=== PATIENT | female | born 1965 | race Caucasian/White ===

== ENCOUNTER 2020-08-28 07:50 | Outpatient (CLI) | payer OTHER, SELFPAY ==
--- NOTE | ~2020-08-28 | US_ITS ---
EXAMINATION: US abdomen complete EXAM DATE: 08/28/2020 09:22 INDICATION: R10.30 - Lower abdominal pain, unspecified. TECHNIQUE: Multiple grayscale and Doppler images of the complete abdomen were obtained (by a technolo gist who performed the scan) and subsequently reviewed. There is no prior study for comparison. FINDINGS: The abdominal aorta is normal in caliber. Visualized portion IVC is patent. The pancreatic head a nd body are normal in appearance. The pancreatic tail is not visualized. The liver has normal echogenicity and contour. There are no focal liver lesions identified. There is no evidence of intrahepatic biliary duct dilation. Portal venous flow was seen in the hepatopedal , normal direction and has normal Doppler waveform. Common bile duct measures 6 mm, which is normal for postcholecystectomy status. The gallbladder yousuf a is unremarkable. Right kidney: There is normal contour and echogenicity. It measures 10.4 x 3.8 x 4.9 centimeters. There are no focal renal lesions identified. There is no hydronephrosis. Left kidney: There is normal contour and echogenicity. It measures 11.2 x 4.7 x 5.4 centimeters. T here are no focal renal lesions identified. There is no hydronephrosis. The spleen measures 9 centimeters and is morphologically normal. IMPRESSION: Unremarkable complete abdominal ultrasound exam. Reviewed, dictated and finalized at location A.
--- NOTE | ~2020-08-28 | US_ITS ---
EXAMINATION: US pelvic complete with transvaginal EXAM DATE: 08/28/2020 09:22 INDICATION: R10.30 - Lower abdominal pain, unspecified. TECHNIQUE: Pelvic transabdominal and transvaginal sonogram was performed. There are multiple graysca le and Doppler images available for interpretation. There is no prior study for comparison. FINDINGS: Uterus measures 5.6 x 3.6 x 4.7 cm, is retroverted with multiple fibroids, 2 of the larger measuring 2.5 cm and 2.3 cm. Endometrial stripe measures 3 mm, within normal limits. There is no f ree pelvic fluid. Right adnexa: The ovary measures 1.2 x 2.1 x 1.1 cm and is morphologically normal. Ovarian vascular f low confirmed. Left adnexa: The ovary measures 1.9 x 0.9 x 1.7 cm and is morphologically normal. Ovarian vascular fl ow confirmed. IMPRESSION: 1. Fibroid uterus. Reviewed, dictated and finalized at location A. IMPRESSION: 1. Fibroid uterus.
--- NOTE | ~2020-08-28 | MM_ITS ---
EXAMINATION: MM screening josette BI w katheryn HISTORY: Screening TECHNIQUE: Craniocaudal and mediolateral oblique 3-D tomosynthesis images were obtained and synthetic 2-D images were generated. CAD analysis was submitted and interpreted. COMPARISON: No prior mammogram is available for comparison at this institution. BREAST PARENCHYMAL COMPOSITION: The breasts are heterogenously dense, which may obscure small masses. FINDINGS: There are asymmetries in the medial aspect of the right breast on CC view. There are no jovita picious masses, calcifications or architectural distortion in the left breast to suggest malignancy. IMPRESSION: 1. Focal asymmetries medial aspect of the right breast 2. Additional mammographic views and possible breast ultrasound are recommended. BI-RADS Category 0: Incomplete: Needs additional imaging evaluation. Reviewed, dictated and finalized at location A. IMPRESSION: 1. Focal asymmetries medial aspect of the right breast 2. Additional mammographic views and possible breast ultrasound are recommended . BI-RADS Category 0: Incomplete: Needs additional imaging evaluation.
[2020-08-28 08:07] LABS: Basophils Absolute Auto 0.06 K/mm3 (0.00-0.10); Basophils Percent Auto 0.9 % (0.0-1.0); Eosinophils Absolute Auto 0.19 K/mm3 (0.02-0.50); Eosinophils Percent Auto 2.8 % (1.0-6.0); Hematocrit 42.9 % (35.0-49.0); Hemoglobin 14.7 g/dL (12.0-15.0); Immature Granulocyte Absolute 0.02 K/mm3 (0.00-0.00); Immature Granulocyte Percent A 0.3 % (0.0-0.0); Lymphocytes Absolute Auto 1.58 K/mm3 (1.10-4.50); Lymphocytes Percent Auto 23.2 % (18.0-42.0); Mean Corpuscular HGB Conc 34.3 g/dL (32.0-36.0); Mean Corpuscular Hemoglobin 30.9 pg (27.0-31.0); Mean Corpuscular Volume 90.3 fL (78.0-102.0); Mean Platelet Volume 8.5 fl (9.2-11.8); Monocytes Absolute Auto 0.47 K/mm3 (0.10-0.90); Monocytes Percent Auto 6.9 % (2.0-11.0); Neutrophils Absolute Auto 4.5 K/mm3 (1.7-7.2); Neutrophils Percent Auto 65.9 % (50.0-70.0); Platelet Count Result 283 K/mm3 (150-420); Red Blood Count 4.75 M/mm3 (4.20-5.40); Red Cell Distribution Width 11.9 % (11.6-14.4); White Blood Count 6.8 K/mm3 (4.8-10.8)
[2020-08-28 08:09] LABS: Add Urine Microscopic? YES; Appearance Urine Clear (Clear); Bilirubin Urine Negative (Negative); Blood Urine 2+ (Negative); Color Urine Yellow (Yellow); Glucose Urine UA Negative (Negative); Ketones Urine Negative (Negative); Leukocyte Esterase Ur 3+ LEU/UL (Negative); Nitrate Urine Negative (Negative); Protein Urine Negative (Negative); Specific Grav Ur 1.025 (1.010-1.020); Urobilinogen Urine 0.2 mg/dL (0.2-1.0)
[2020-08-28 08:16] LABS: Squamous Epithelial Cell Urine Few /hpf (Few); WBC Urine 31-50 /hpf (0-3)
[2020-08-28 08:17] LABS: Bacteria Urine 1+ /hpf
[2020-08-28 09:55] LABS: Alanine Aminotransferase 58 U/L (14-59); Alkaline Phosphatase 91 U/L (46-116); Amylase 110 U/L (25-115); Anion Gap 7 mmol/L (8-16); Aspartate Amino Transferase 21 U/L (15-37); Bilirubin,Total 0.4 mg/dL (0.00-1.00); Blood Urea Nitrogen 16 mg/dL (7-18); Calcium 9.3 mg/dL (8.5-10.1); Carbon Dioxide 29 mmol/L (21-32); Chloride 102 mmol/L (98-108); Cholesterol 243 mg/dL (0-200); Estimated Glomerular Filt Rate > 60; Glucose 84 mg/dL (70-99); HDL Direct 82 mg/dL (40-60); LDL Cholesterol Calculated 145 mg/dL (<130); Lipase 228 U/L (73-393); Osmolality Calculated 286 mOsm/kg (285-295); Potassium 4.4 mmol/L (3.5-5.1); Sodium 138 mmol/L (136-145); Total Protein 7.2 g/dL (6.4-8.2); Triglycerides 80 mg/dL (0-150)
== END 2020-08-28 07:51 | disposition home or self-care (01) ==
LOC: CHSIMG 07:56
PROVIDERS: PCP Family Medicine; Visit Provider Nurse Practitioner Family
DX: R10.30 Lower abdominal pain, unspecified (principal); Z12.31 Encounter for screening mammogram for malignant neoplasm of breast
CPT/HCPCS: 36415; 76700; 76856; 77063; 77067; 80053; 80061; 81001; 82150; 83690; 85025; 87086

== ENCOUNTER 2020-09-12 07:48 | Outpatient (CLI) | payer OTHER, SELFPAY ==
--- NOTE | ~2020-09-12 | MMUS_ITS ---
EXAMINATION: MM diagnostic josette RT w katheryn, US breast RT complete HISTORY: Follow-up right breast asymmetry TECHNIQUE: Additional 3-D tomosynthesis images of the right breast were performed and synthetic 2-D i mages were generated. CAD analysis was submitted and interpreted. High resolution complete right bre st ultrasound was performed. COMPARISON: 08/28/2020 BREAST PARENCHYMAL COMPOSITION: Breast composed of scattered areas of fibroglandular density. FINDINGS: MAMMOGRAPHIC FINDINGS: There is a radiolucent 7 mm mass in the mid inner aspect of the right breast posteriorly. There are n o suspicious calcifications or architectural distortion. ULTRASOUND: Right breast ultrasound: At 2:00, 3 cm from the nipple, there is a 5 mm cyst. No suspicious masses to suggest malignancy. IMPRESSION: 1. No evidence for malignancy in the right breast. Benign findings. 2. Routine yearly screening mammogram and regular clinical breast examination are recommended. BI-RADS Category 2: Benign finding(s). Reviewed, dictated and finalized at location A. IMPRESSION: 1. No evidence for malignancy in the right breast. Benign findings. 2. Routine yearly screening mammogram and regular clinical breast examination a re recommended. BI-RADS Category 2: Benign finding(s).
== END 2020-09-12 07:49 | disposition home or self-care (01) ==
LOC: CHSIMG 07:49
PROVIDERS: PCP Nurse Practitioner Family; Visit Provider Nurse Practitioner Family
DX: R92.8 Other abnormal and inconclusive findings on diagnostic imaging of breast (principal)
CPT/HCPCS: 76641; 77061; 77065; G0279

== ENCOUNTER 2021-01-06 10:46 | Outpatient (CLI) | payer OTHER, SELFPAY | END 2021-01-06 10:47 | disposition home or self-care (01) | PROVIDERS: PCP Nurse Practitioner Family; Visit Provider Nurse Practitioner Family | DX: N39.0 Urinary tract infection, site not specified (principal); Z02.1 Encounter for pre-employment examination | CPT/HCPCS: 36415; 86735; 87086; 87088 ==

== ENCOUNTER 2021-06-10 12:11 | Outpatient (CLI) | payer OTHER, SELFPAY ==
[2021-06-10 12:32] LABS: Basophils Absolute Auto 0.04 K/mm3 (0.00-0.10); Basophils Percent Auto 0.6 % (0.0-1.0); Eosinophils Absolute Auto 0.15 K/mm3 (0.02-0.50); Eosinophils Percent Auto 2.4 % (1.0-6.0); Hematocrit 43.5 % (35.0-49.0); Hemoglobin 14.7 g/dL (12.0-15.0); Immature Granulocyte Absolute 0.01 K/mm3 (0.00-0.00); Immature Granulocyte Percent A 0.2 % (0.0-0.0); Lymphocytes Absolute Auto 1.85 K/mm3 (1.10-4.50); Lymphocytes Percent Auto 29.9 % (18.0-42.0); Mean Corpuscular HGB Conc 33.8 g/dL (32.0-36.0); Mean Corpuscular Volume 91.8 fL (78.0-102.0); Mean Platelet Volume 8.6 fl (9.2-11.8); Monocytes Absolute Auto 0.38 K/mm3 (0.10-0.90); Monocytes Percent Auto 6.1 % (2.0-11.0); Neutrophils Absolute Auto 3.8 K/mm3 (1.7-7.2); Neutrophils Percent Auto 60.8 % (50.0-70.0); Platelet Count Result 308 K/mm3 (150-420); Red Blood Count 4.74 M/mm3 (4.20-5.40); Red Cell Distribution Width 11.9 % (11.6-14.4); White Blood Count 6.2 K/mm3 (4.8-10.8)
[2021-06-10 13:18] LABS: Alanine Aminotransferase 33 U/L (14-59); Albumin Level 4.1 g/dL (3.4-5.0); Alkaline Phosphatase 84 U/L (46-116); Anion Gap 8 mmol/L (8-16); Aspartate Amino Transferase 18 U/L (15-37); Bilirubin,Total 0.4 mg/dL (0.00-1.00); Blood Urea Nitrogen 13 mg/dL (7-18); Calcium 9.5 mg/dL (8.5-10.1); Carbon Dioxide 29 mmol/L (21-32); Chloride 102 mmol/L (98-108); Estimated Glomerular Filt Rate > 60; Glucose 80 mg/dL (70-99); Magnesium 2.6 mg/dL (1.8-2.4); Osmolality Calculated 287 mOsm/kg (285-295); Potassium 4.6 mmol/L (3.5-5.1); Sodium 139 mmol/L (136-145); Total Protein 7.2 g/dL (6.4-8.2)
== END 2021-06-10 12:12 | disposition home or self-care (01) ==
LOC: CHSLAB 12:14
PROVIDERS: PCP Nurse Practitioner Family; Visit Provider Nurse Practitioner Family
DX: R42 Dizziness and giddiness (principal)
CPT/HCPCS: 36415; 80053; 83735; 85025

== ENCOUNTER 2022-07-06 14:45 | Outpatient (RCR) | payer OTHER, MEDICAID, SELFPAY ==
--- NOTE | 2022-06-08 14:24 | PTOPEVAL1 ---
Assessment and note entered by Rupali Gonzalez, PT, DPT Evaluation Information Assessment Status Evaluation Diagnosis low back pain Onset 3 years Subjective Information Pt states she has R sided low back pain, maybe even hip/leg pain. She states she has been getting treatment from the chiropractor without much relief. She states when she sits for longer than 20 mins her leg with start to freeze up . Reported Pain Level Pain Score 0: Self Report Assessment PT Clinical Summary Sheela presents to therapy today for her initial evaluation with a diagnosis of dorsalgia. Today she reports R sided anterior groin pain that is at its worst with initial movements. She demonstrates lumbar and LE ROM that is WNL and pain free, she demonstrates good LE strength through manual muscle testing that is not limited by pain. Skilled PT services are indicated to improve hip stability and functional strength, to manage pain, and to promote unlimited functional mobility. Plan of Care Interventions Electrical Stimulation,Hot Pack/Cold Pack,Manual Therapy,Neuro Re-education,Patient/Caregiver Educati,Therapeutic Activities,Therapeutic Exercise PT Services Indicated Yes Treatment Frequency and 1x/wk for 4 wks Duration These treatments will address the objective and functional deficits as defined above. The patient will be advanced safely and appropriately in order for the patient to progress towards his/her prior level of function. Additional exercises will be introduced and as well as a comprehensive home exercise program upon discharge, if needed, ?to ensure carryover of functional gains achieved in the clinic. This treatment plan has been reviewed and agreement upon by the patient.
--- NOTE | 2022-07-06 15:33 | PTOPDC ---
Assessment and note entered by Rupali Gonzalez, PT, DPT Evaluation Information Assessment Status Discharge Diagnosis low back pain Onset 3 years Subjective Information Pt states her pain is half as bad as it was when initially starting therapy. She states it also does not stiffen up like it used to. Pt reports 35 % improvement in overall symptoms. She reports great compliance with her HEP. Pt states she walked 2 miles on Wednesday and 1 mile on Wednesday without an increase in pain after. She states her pain is still worse for the first 1 hour of being awake. Reported Pain Level Pain Score 0: Self Report Assessment PT Clinical Summary Sheela presents to therapy today for her progress report following 4 visits of skilled therapy to treat her low back pain. Today pt demonstrates improved LE strength and ROM, to reports improved functional mobility with only pain in the morning. Pt reports excellent compliance with her HEP and has met or progressed towards all of her therapy goals. She will be discharged at this time with instructions to continue her HEP upon discharge and to follow up with her referring provider if needed. Plan of Care Interventions Electrical Stimulation,Hot Pack/Cold Pack,Manual Therapy,Neuro Re-education,Patient/Caregiver Educati,Therapeutic Activities,Therapeutic Exercise PT Services Indicated No Treatment Frequency and to be discharged Duration
== END 2022-07-07 09:52 | disposition home or self-care (01) ==
LOC: ANHGOSHPT 14:45
PROVIDERS: PCP Nurse Practitioner Family; Visit Provider Nurse Practitioner Family
DX: M54.9 Dorsalgia, unspecified (principal); M47.816 Spondylosis without myelopathy or radiculopathy, lumbar region
CPT/HCPCS: 97110; 97112; 97140; 97161; 97530

== ENCOUNTER 2022-11-20 10:55 | Outpatient (CLI) | payer OTHER, SELFPAY ==
--- NOTE | ~2022-11-20 | DEXA_ITS ---
Bone Density Report Name: MELANIE SHER Age: 57 Sex: Female Ethnicity: White Date of : 1965 Indication: postmenopausal; screening for osteoporosis; height loss; Referring Provider: Melida Keene Study: Bone densitometry was performed. Exam Date: November 20, 2022 Accession number: [id number] Bone Density: Region BMD T-score Z-score Classification AP Spine(L1-L4) 0.848 -1.8 -0.5 Osteopenia Femoral Neck (Left) 0.580 -2.4 -1.2 Osteopenia Total Hip (Left) 0.870 -0.6 0.3 Normal Femoral Neck (Right) 0.614 -2.1 -0.9 Osteopenia Total Hip (Right) 0.849 -0.8 0.1 Normal Femoral Neck Mean 0.597 -2.3 -1.1 Osteopenia Total Hip Mean 0.859 -0.7 0.2 Normal World Health Organization criteria for BMD impression classify patients as: Normal (T-score at or above -1.0), Osteopenia (T-score between -1.0 and -2.5), or Osteoporosis (T-score at or below -2.5). 10-year Fracture Risk(1): Major Osteoporotic Fracture 9.8% Hip Fracture 1.5% Reported Risk Factors: [place] (), Neck BMD=0.580, BMI=30.0 (1) FRAX(R) Version 3.08. Fracture probability calculated for an untreated patient. Fracture probability may be lower if the patient has received treatment. Clinical Information Provided by Patient: Has used the following medications: Vitamin D, Calcium Patient maximum height was 67 Menopause Age: 54 Drinks caffeinated beverages Onset of menses at age 13 Number of children 0 Impression: The patient has low bone mass, based on the Left Femoral Neck T-score. Discussion: BONE DENSITY IS LOW AT ONE OR MORE SKELETAL SITES. This patient's lowest T-score is low at one or more skeletal sites. It meets the World Health Organization's (WHO) criteria for ?low bone mass? (T-score between -1.0 and -2.5). The patient's 10-year risk of fracture as calculated by FRAX is less than the threshold where pharmacological therapy is recommended by the National Osteoporosis Foundation (NOF). However, all treatment decisions require clinical judgment and consideration of individual patient factors, including patient preferences, comorbidities, previous drug use, risk factors not captured in the FRAX model (e.g., frailty, falls, vitamin D deficiency, increased bone turnover, interval significant decline in bone density) and possible under or overestimation of fracture risk by FRAX. The patient should follow a healthful lifestyle (good nutrition with adequate calcium and vitamin D, and appropriate weight-bearing exercise). Follow-Up: Consider repeating this study in 2 to 3 years to reassess this patient's status, or sooner if there is some new clinical indication. Reported by: Dr. Kavin Rodriguez on 11/20/2022 11:15:00 AM. Reviewed, dictated a
== END 2022-11-20 10:56 | disposition home or self-care (01) ==
LOC: CHSIMG 10:56
PROVIDERS: PCP Nurse Practitioner Family; Visit Provider Nurse Practitioner Family
DX: Z78.0 Asymptomatic menopausal state (principal); M85.89 Other specified disorders of bone density and structure, multiple sites
CPT/HCPCS: 77080

== ENCOUNTER 2023-01-18 12:06 | Outpatient (CLI) | payer OTHER, SELFPAY ==
--- NOTE | ~2023-01-18 | MM_ITS ---
EXAMINATION: MM screening josette BI w kathreyn HISTORY: Screening mammogram TECHNIQUE: Craniocaudal and mediolateral oblique 3-D tomosynthesis images were obtained and synthetic 2-D images were generated. CAD analysis was submitted and interpreted. COMPARISON: 09/12/2020 diagnostic right mammogram and right complete breast ultrasound examination 08/28/2020 bilateral screening mammogram BREAST PARENCHYMAL COMPOSITION: There are scattered areas of fibroglandular density. FINDINGS: Stable approximately 3.7 x 5.8 mm nodular density circumscribed opacity is noted in the pos terior inner right breast on craniocaudal view, not significantly changed since 08/28/2020. No suspici ous mass, architectural distortion, microcalcifications, skin thickening or retraction of either bre st is detected.. IMPRESSION: 1. Benign finding; no mammographic evidence of malignancy 2. Recommend routine screening mammography in one year. BI-RADS Category 2: Benign finding(s). Reviewed, dictated and finalized at location A.
== END 2023-01-18 12:07 | disposition home or self-care (01) ==
LOC: CHSIMG 12:07
PROVIDERS: PCP Nurse Practitioner Family; Visit Provider Nurse Practitioner Family
DX: Z12.31 Encounter for screening mammogram for malignant neoplasm of breast (principal)
CPT/HCPCS: 77063; 77067

== ENCOUNTER 2023-05-08 15:04 | Emergency (ER) | payer OTHER, SELFPAY ==
--- NOTE | 2023-05-08 15:12 | ED.URI ---
HPI - URI/Sore Throat General Chief Complaint: Upper Respiratory Infection Stated Complaint: SORE THROAT/COUGH/HEADACHE/NAUSEA/BODY ACHES Time Seen by Provider: 05/08/23 15:59 Source: patient and RN notes reviewed Mode of arrival: ambulatory Limitations: no limitations History of Present Illness HPI Narrative: 57-year-old female presents concern for nasal congestion, headache, sore throat, body aches that started on Wednesday. She denies shortness of breath. She reports chest congestion. MD elicited complaint: cough and sore throat Related Data Allergies Allergy/AdvReac Type Severity Reaction Status Date / Time Penicillins Allergy Hives Verified 05/18/22 15:39 Review of Systems Review of Systems: CONSTITUTIONAL: Reports malaise, chills, sweats, fever. EYES: Denies visual changes, redness, or discharge. ENT: Reports rhinorrhea, congestion. Denies sinus pain, otalgia and sore throat. CARDIOVASCULAR: Denies chest pain, palpitations, or edema. RESPIRATORY: Reports cough and chest congestion. Denies dyspnea. GASTROINTESTINAL: Denies abdominal pain, nausea, vomiting, diarrhea SKIN: Denies rash or itching. MUSCULOSKELETAL: Reports myalgia. NEUROLOGIC: Reports headache. All systems reviewed & are unremarkable except as noted in HPI and below PMFSH Surgical History Surgical History History of cholecystectomy Social History Social History Smoking status: Never smoker Alcohol intake: current Alcohol use details: glass of wine once in a while Substance use: never Lack of Transportation: No Lack of Food: Never True Current Housing: I Have Housing Concerned About Future Housing: No Difficulty Paying Gas/Electric Bills: No Difficulty Paying for Meds: No Currently Unemployed: No Education: Associate Degree Difficulty w/ Childcare or Family Care: No Living arrangements: with family Occupation/Education: occupation Additional occupation/education comments: [employer] in [place] Gender identity (if verbalized by the patient): Female Comments At time of signature, agree with nursing past medical, surgical, social and family history. There is no relevant family history pertinent to the presenting complaint Exam Narrative: GENERAL: Well-appearing, well-nourished, and in no acute distress. HEAD: Normocephalic EYES: PERRLA, conjunctivae clear ENT: Nares clear, turbinates edematous and erythematous, clear discharge. Mucous membranes moist. TM pearly urban with sharp light reflex bilaterally; no tragal tenderness. Oropharynx not erythematous without lesions. Tonsils not enlarged and without exudate, no drooling, no hoarseness, no trismus, uvula midline. NECK: Supple. No lymphadenopathy CHEST: Clear to auscultation, breath sounds equal. No wheezing, rhonchi, rales, or stridor. No respiratory distress, speaks in full sentences. HEART: Regular rate and rhythm. No murmur heard. SKIN: Warm, dry, no rash. NEURO: Alert and oriented x3. PSYCH: Normal mood and affect Course Course Emergency Course: Patient is aware of diagnosis, understands and agrees to treatment plan. Anticipatory guidance given. Patient agrees to follow-up as directed and is aware of reasons to seek care at the emergency department. Portions of this record may have been created with voice recognition software Level of Care: Express Care Visit Vital Signs Vital signs: Vital Signs Temperature 97.8 F 05/08/23 15:50 Pulse Rate 119 H 05/08/23 15:50 Respiratory Rate 16 05/08/23 15:50 Blood Pressure 133/96 H 05/08/23 15:50 Pulse Oximetry 97 05/08/23 15:50 Temperature 97.8 F 05/08/23 15:50 Pulse Rate 119 H 05/08/23 15:50 Respiratory Rate 16 05/08/23 15:50 Blood Pressure 133/96 H 05/08/23 15:50 Pulse Oximetry 97 05/08/23 15:50 Reviewed. MDM - URI/Sore Throat MDM Narrative Medic
[2023-05-08 15:50] VITALS: BP 133/96; PULSE 119; RESP 16; TEMP 36.6; O2SAT 97
== END 2023-05-08 16:12 | disposition home or self-care (01) ==
PROVIDERS: Emergency Provider Nurse Practitioner; PCP Nurse Practitioner Family
DX: J10.1 Influenza due to other identified influenza virus with other respiratory manifestations (principal)
CPT/HCPCS: 87804; 99213; G0463

== ENCOUNTER 2023-05-31 10:20 | Outpatient (CLI) | payer OTHER, SELFPAY ==
--- NOTE | ~2023-05-31 | XR_ITS ---
EXAM: XR ribs LT 2V DATE: 05/31/2023 10:40 HISTORY: LOWER LEFT RIB PAIN X 2 MONTHS/NO TRAUMA . COMPARISON: None available. FINDINGS: Normal mineralization. No fracture or dislocation. No lytic or blastic lesion. Visualized lung parenchyma is clear. No erosion or periosteal change. Soft tissues within normal limits. Cholecy stectomy clips. IMPRESSION: No acute osseous finding in the left ribs. Reviewed, dictated and finalized at location K. P MIXER HELPER
== END 2023-05-31 10:21 | disposition home or self-care (01) ==
LOC: CHSIMG 10:22
PROVIDERS: PCP Nurse Practitioner Family; Visit Provider Nurse Practitioner Family
DX: R07.81 Pleurodynia (principal)
CPT/HCPCS: 71100

== ENCOUNTER 2023-11-03 07:46 | Outpatient (CLI) | payer OTHER, MEDICAID, SELFPAY ==
--- NOTE | ~2023-11-03 | XR_ITS ---
EXAMINATION: XR barium swallow DATE: 11/03/2023 08:41 INDICATION: Dysphagia with sensation of food getting stuck in the distal esophagus. TECHNIQUE: The patient drank thick barium, gas-producing crystals, and thin barium. Fluoroscopic spot radiographs of the hypopharynx and esophagus were obtained. Fluoroscopy exposure time was 1.7 minut es. A total of 1160 fluoroscopic images were recorded. Total DAP was 10.4 Gycm^2 COMPARISON: None. FINDINGS: The pharynx is symmetric and without evidence of mass lesion or mucosal irregularity. The e sophagus is normal without mass or stricture. Esophageal motility is normal. No hiatal hernia with no rmal esophageal a ring at the cephalad margin of the esophageal bulb proximally 2 cm above the diaphr agm. There was no gastroesophageal reflux with provocative maneuvers. IMPRESSION: 1. Normal esophagram. Reviewed, dictated and finalized at location A. IMPRESSION: 1. Normal esophagram.
== END 2023-11-03 07:47 | disposition home or self-care (01) ==
PROVIDERS: PCP Nurse Practitioner Family; Visit Provider Nurse Practitioner Family
DX: R13.10 Dysphagia, unspecified (principal)
CPT/HCPCS: 74220

== ENCOUNTER 2024-07-26 12:47 | Outpatient (CLI) | payer OTHER, SELFPAY ==
--- NOTE | ~2024-07-26 | MM_ITS ---
EXAMINATION: MM screening josette BI w katheryn HISTORY: Screening TECHNIQUE: Craniocaudal and mediolateral oblique 3-D tomosynthesis images were obtained and synthetic 2-D images were generated. CAD analysis was submitted and interpreted. COMPARISON: Comparison to multiple prior studies sequentially, with oldest reviewed study dated 08/28. BREAST PARENCHYMAL COMPOSITION: Not dense: There are scattered areas of fibroglandular density. FINDINGS: There is no evidence of suspicious mass, calcification, or architectural distortion to sugg est malignancy in either breast. There has been no suspicious interval change. IMPRESSION: 1. No mammographic evidence of malignancy. 2. Recommend routine screening mammography in one year. BI-RADS Category 1: Negative Reviewed, dictated and finalized at location B.
--- OUTSIDE RECORDS SUMMARY | 2024-07-26 13:44 | XMS_ITS | Continuity of Care Document ---
Author Organization [facility] Address [address] [place] [address] Phone Care Team Providers Care Pet Technologist Name Role Phone Unavailable Unavailable Unavailable Procedures Procedure Date Resin Composite, 2 Surfaces, Posterior F Comprehensive Oral Evaluation-New/Est Pt Full Mouth Series Of Radiographic Images Limit Oral Evaluation- problem focused O Dental Panoramic Radiographic Image Maxillary Partial Denturel--Cast Metal F ramework With Resin Denture Bases Denture-Wax Try-In Hrkcrjq-Abdqilm-Fflufoxkt Try-In 2016 Office Visit (No Chrg) Uefeung-Fwmnmta-Fafgz Impressions Blauwtd-Iddzsnn-Nsvovcc Impressions Dental prophylaxis adult Resin composite, 1 [...] Diagnoses Date Provider Providers Copied on Encounter [facility] , [address], [place], [place], [address], tel:[phone] [facility] Dental caries, unspecified 0 No Information Referring Provider: Rasheed Ness [address], [place], [address] . tel:[phone] [facility] , [address], [place], [place], [address], tel:[phone] [facility] Dental caries, unspecified 9 No Information Referring Provider: Rasheed Ness [address], [place], [address] . tel:[phone] [facility] , [address], [place], [place], [address], tel:[phone] [facility] Dental caries, unspecified 9 No Information Referring Provider: Rasheed Ness [address], [place], [address] . tel:[phone] [facility] , [address], [place], [place], [address], tel:[phone] [facility] Encounter for dental exam and cleaning w abnormal findings 7 No Information Referring Provider: Josephine Terrazas [address], [place], [address] . tel:[phone] [facility] , [facility], [place], [place], [address], tel:[phone] [facility] Encounter for dental exam and cleaning w abnormal findings 7 No Information Referring Provider: Josephine Terrazas [address], [place], [address] . tel:[phone] [facility] , [address], [place], [place], [address], [place] tel:[phone] [facility] Encounter for dental exam and cleaning w abnormal findings 7 No Information Referring Provider: Josephine Terrazas [address], [place], [address] . tel:[phone] [facility] , [address], [place], [place], [address], [place] tel:[phone] [facility] Encounter for dental exam and cleaning w abnormal findings 7 No Information Referring Provider: Josephine Terrazas [address], [place], [address] . tel:[phone] [facility] , [address], [place], [place], [address], [place] tel:[phone] [facility] Encounter for dental exam and cleaning w abnormal findings 7 No Information Referring Provider: Josephine Terrazas [address], [place], [address] . tel:[phone] [facility] , [address], [place], [place], [address], [place] tel:[phone] [facility] Encounter for dental exam and cleaning w abnormal findings 7 No Information Referring Provider: Josephine Terrazas [address], [place], [address] . tel:[phone] [facility] , [address], [place], [place], [address], [place] tel:[phone] [facility] Encounter for dental exam and cleaning w abnormal findings 7 No Information Referring Provider: Josephine Terrazas [address], [place], [address] . tel:[phone] [facility] , [address], [place], [place], [address], [place] tel:[phone] [facility] caries, unspecified 7 No Information Referring Provider: Josephine Terrazas [address], [place], [address] . tel:[phone] [facility] , [address], [place], [place], [address], [place] tel:[phone] [facility] No Information 7 No Information Referring Provider: Josephine Terrazas, [address], [place], [address] . tel:[phone] [facility] , [address], [place], [place], [address], [place] tel:[phone] [facility] No Information 7 No Information Referring Provider: Josephine Terrazas, [address], [place], [address] . tel:[phone] [facility] , [address], [place], [place], [address], [place] tel:[phone] [facility] Dental caries, unspecified No Information Referring Provider: Josephine Terrazas, [address], [place], [address] . tel:[phone] [facility] , [address], [place], [place], [address], [place] tel:[phone] [facility] Dental caries, unspecified 7 No Information Referring Provider: Rasheed Ness, [address], [place], [address] . tel:[phone] [facility] , [address], [place], [place], [address], [place] tel:[phone] [facility] Encounter for dental exam and cleaning w abnormal findings 6 Nini Burton. [address], [place], [place], [address]. tel:[phone] Referring Provider: Josephine Terrazas, [address], [place], [address] . tel:[phone] [facility] , [address], [place], [place], [address], [place] tel:[phone] [facility] Dental caries on smooth surface penetrating into dentinEncounter for dental exam and cleaning w abnormal findings Mar-0 6 Nini Burton. [address], [place], [place], [address]. tel:[phone] Referring Provider: Josephine Terrazas, [address], [place], [address] . tel:[phone] [facility] , [address], [place], [place], [address], tel:[phone] [facility] Encounter for dental exam and cleaning w abnormal findings 6 Nini Burton. [address], [place], [place], [address]. tel:[phone] Referring Provider: Josephine Terrazas, [address], [place], [address] . tel:[phone] [facility] , [address], [place], [place], [address], tel:[phone] [facility] No Information 6 Nini Burton. [address], [place], [place], [address]. tel:[phone] Referring Provider: Josephine Terrazas, [address], [place], [address] . tel:[phone] [facility] , [address], [place], [place], [address], tel:[phone] [facility] Periapical abscess with sinus 6 No Information [facility] , [address], [place], [place], [address], tel:[phone] [facility] Dental caries, unspecified 5 No Information [facility] , [address], [place], [place], [address], tel:[phone] [facility] Encounter for dental exam and cleaning w abnormal findings 5 No Information Family History Family Member Type Diagnosis Age At Onset No Information Payers Payer name Insurance type Covered green party ID Tierra ashley(s) [facility] [id number] Social History Type Description Quantity Date Captured [...]
== END 2024-07-26 12:48 | disposition home or self-care (01) ==
LOC: CHSIMG 12:48
PROVIDERS: PCP Nurse Practitioner Family; Visit Provider Nurse Practitioner Family
DX: Z12.31 Encounter for screening mammogram for malignant neoplasm of breast (principal)
CPT/HCPCS: 77063; 77067

== ENCOUNTER 2025-02-07 12:39 | Outpatient (CLI) | payer OTHER, MEDICAID, SELFPAY ==
--- OUTSIDE RECORDS SUMMARY | 2019-05-15 03:30 | XMS_ITS | Continuity of Care Document ---
Author Organization [facility] Address [address] [place] [address] Phone Care Team Providers Care Public Relations Senior Associate Name Role Phone Unavailable Unavailable Unavailable Procedures Procedure Date Resin Composite, 2 Surfaces, Posterior F Comprehensive Oral Evaluation-New/Est Pt Full Mouth Series Of Radiographic Images Limit Oral Evaluation- problem focused O Dental Panoramic Radiographic Image Maxillary Partial Denturel--Cast Metal F ramework With Resin Denture Bases Denture-Wax Try-In Wttqhdo-Dbkityx-Sltphrzvr Try-In 2016 Office Visit (No Chrg) Ycvztpb-Hlvviwd-Dctmb Impressions Gdxdqje-Etaqflx-Ybpcnnl Impressions Dental prophylaxis adult Resin composite, 1 surf posterior Resin composite, 3 surf posterior Resin composite, 2 surf posterior Resin composite, 2 surf posterior Extraction erupted tooth or exposed root Extraction erupted tooth or exposed root Extraction erupted tooth or exposed root Extraction erupted tooth or exposed root Extraction erupted tooth or exposed root Office Visit (No Chrg) Resin composite, 3 surf posterior Dental prophylaxis adult Office Visit (No Chrg) Comprehensive Oral Evaluation 6 Dental Panoramic Radiographic Image Study Models Full Mounth Series Of Radiographic Image s Limit oral eval problem focused 016 Periapical Radiographic, first Image Nov Extraction erupted tooth or exposed root Comprehensve oral evaluation Dental Panoramic Radiographic Image Full Mounth Series Of Radiographic Image s Oral hygiene instruction Advance Directives Directive Yes / No Effective Date File Name No Information Encounters Encounter Description Practice Location Reason(s) For Visit Diagnoses Date Provider Providers Copied on Encounter [facility] , [address], [place], [place], [address], tel:[phone] [facility] [place] Dental caries, unspecified 0 No Information Referring Provider: Rasheed Ness [address], [place], [address] . tel:[phone] [facility] , [address], [place], [place], [address], tel:[phone] [facility] Dental caries, unspecified 9 No Information Referring Provider: Rasheed Ness [address], [place], [address] . tel:[phone] [facility] , [address], [place], [place], [address], tel:[phone] [facility] Dental caries, unspecified 9 No Information Referring Provider: Rasheed Ness [address], [place], [address] . tel:[phone] [facility] , [address], [place], [place], [address], tel:[phone] [facility] Encounter for dental exam and cleaning w abnormal findings 7 No Information Referring Provider: Josephine Terrazas [address], [place], [address] . tel:[phone] [facility] , [address] [facility], [place], [place], [address], tel:[phone] [facility] Encounter for dental exam and cleaning w abnormal findings 7 No Information Referring Provider: Josephine Terrazas [address], [place], [address] . tel:[phone] [facility] , [address], [place], [place], [address], [place] tel:[phone] [facility] Encounter for dental exam and cleaning w abnormal findings 7 No Information Referring Provider: Josephine Terrazas [address], [place], [address] . tel:[phone] [facility] , [address], [place], [place], [address], [place] tel:[phone] [facility] Encounter for dental exam and cleaning w abnormal findings 7 No Information Referring Provider: Josephine Terrazas [address], [place], [address] . tel:[phone] [facility] [address], [place], [place], [address], [place] tel:[phone] [facility] Encounter for dental exam and cleaning w abnormal findings 7 No Information Referring Provider: Josephine Terrazas [address], [place], [address] . tel:[phone] [facility] , [address], [place], [place], [address], [place] tel:[phone] [facility] Encounter for dental exam and cleaning w abnormal findings 7 No Information Referring Provider: Josephine Terrazas [address], [place], [address] . tel:[phone] [facility] [address], [place], [place], [address], [place] tel:[phone] [facility] Encounter for dental exam and cleaning w abnormal findings 7 No Information Referring Provider: Josephine Terrazas [address], [place], [address] . tel:[phone] [facility] , [address], [place], [place], [address], [place] tel:[phone] [facility] caries, unspecified 7 No Information Referring Provider: Josephine Terrazas [address], [place], [address] . tel:[phone] [facility] , [address], [place], [place], [address], [place] tel:[phone] [facility] No Information 7 No Information Referring Provider: Josephine Terrazas, [address], [place], [address] . tel:[phone] [facility] , [address], [place], [place], [address], [place] tel:[phone] [facility] No Information 7 No Information Referring Provider: Jospehine Terrazas, [address], [place], [address] . tel:[phone] [facility] , [address], [place], [place], [address], [place] tel:[phone] [facility] Dental caries, unspecified No Information Referring Provider: Josephine Terrazas, [address], [place], [address] . tel:[phone] [facility] , [address], [place], [place], [address], [place] tel:[phone] [facility] Dental caries, unspecified 7 No Information Referring Provider: Rasheed Ness, [address], [place], [address] . tel:[phone] [facility] , [address], [place], [place], [address], [place] tel:[phone] [facility] Encounter for dental exam and cleaning w abnormal findings 6 Nini Burton. [address], [place], [place], [address]. tel:[phone] Referring Provider: Josephine Terrazas, [address], [place], [address] . tel:[phone] [facility] , [address], [place], [place], [address], [place] tel:[phone] [facility] Dental caries on smooth surface penetrating into dentinEncounter for dental exam and cleaning w abnormal findings Mar-0 6 Nini Burton. [address], [place], [place], [address]. tel:[phone] Referring Provider: Josephine Terrazas, [address], [place], [address] . tel:[phone] [facility] , [address], [place], [place], [address], tel:[phone] [facility] Encounter for dental exam and cleaning w abnormal findings 6 Nini Burton. [address], [place], [place], [address]. tel:[phone] Referring Provider: Josephine Terrazas, [address], [place], [address] . tel:[phone] [facility] , [address], [place], [place], [address], tel:[phone] [facility] No Information 6 Nini Burton. [address], [place], [place], [address]. tel:[phone] Referring Provider: Josephine Terrazas, [address], [place], [address] . tel:[phone] [facility] , [address], [place], [place], [address], tel:[phone] [facility] Periapical abscess with sinus 6 No Information [facility] , [address], [place], [place], [address], tel:[phone] [facility] Dental caries, unspecified 5 No Information [facility] , [address], [place], [place], [address], tel:[phone] [facility] Encounter for dental exam and cleaning w abnormal findings 5 No Information Family History Family Member Type Diagnosis Age At Onset No Information Payers Payer name Insurance type Covered libertarian ID Tierra ashley(s) Iman [facility] [id number] Social History Type Description Quantity Date Captured Comments Sex Female Smoking Status No Information Chief Complaint And Reason For Visit No Information Reason For Referral Reason For Referral No Information History Of Present Illness Encounter Date Complaint History Of Prese nt Illness No Information Functional Status Date Functional Assessmen t No Information Instructions Date Instruction Additional Infor mation No Information Assessments Type Assessment Date No Information Patient Care Teams Name Effective Dates (start - stop) Status Members No Information
--- NOTE | ~2025-02-07 | DEXA_ITS ---
Bone Density Report Name: MELANIE SHER Age: 59 Sex: Female Ethnicity: White Date of : 1965 Indication: postmenopausal; screening for osteoporosis; height loss; Referring Provider: Melida Keene Study: Bone densitometry was performed. Exam Date: February 07, 2025 Accession number: [id number] Bone Density: Region BMD T-score Z-score Classification AP Spine(L1-L4) 0.851 -1.8 -0.3 Osteopenia Femoral Neck (Left) 0.588 -2.4 -1.0 Osteopenia Total Hip (Left) 0.917 -0.2 0.8 Normal Femoral Neck (Right) 0.606 -2.2 -0.9 Osteopenia Total Hip (Right) 0.902 -0.3 0.7 Normal Femoral Neck Mean 0.597 -2.3 -1.0 Osteopenia Total Hip Mean 0.910 -0.3 0.7 Normal World Health Organization criteria for BMD impression classify patients as: Normal (T-score at or above -1.0), Osteopenia (T-score between -1.0 and -2.5), or Osteoporosis (T-score at or below -2.5). 10-year Fracture Risk(1): Major Osteoporotic Fracture 11% Hip Fracture 1.8% Reported Risk Factors: [place] (), Neck BMD=0.588, BMI=27.4 (1) FRAX(R) Version 3.08. Fracture probability calculated for an untreated patient. Fracture probability may be lower if the patient has received treatment. Clinical Information Provided by Patient: Has used the following medications: Vitamin D, Calcium Patient maximum height was 68 Menopause Age: 54 Drinks caffeinated beverages Onset of menses at age 13 Number of children 0 Impression: The patient has low bone mass, based on the Left Femoral Neck T-score. Discussion: BONE DENSITY IS LOW AT ONE OR MORE SKELETAL SITES. This patient's lowest T-score is low at one or more skeletal sites. It meets the World Health Organization's (WHO) criteria for ?low bone mass? (T-score between -1.0 and -2.5). The patient's 10-year risk of fracture as calculated by FRAX is less than the threshold where pharmacological therapy is recommended by the National Osteoporosis Foundation (NOF). However, all treatment decisions require clinical judgment and consideration of individual patient factors, including patient preferences, comorbidities, previous drug use, risk factors not captured in the FRAX model (e.g., frailty, falls, vitamin D deficiency, increased bone turnover, interval significant decline in bone density) and possible under or overestimation of fracture risk by FRAX. The patient should follow a healthful lifestyle (good nutrition with adequate calcium and vitamin D, and appropriate weight-bearing exercise). Follow-Up: Consider repeating this study in 2 to 3 years to reassess this patient's status, or sooner if there is some new clinical indication. Reported by: KAMILLE on 02/07/2025 12:58:00 PM. Reviewed, dictated and finalized at location A.
== END 2025-02-07 12:40 | disposition home or self-care (01) ==
PROVIDERS: PCP Nurse Practitioner Family; Visit Provider Nurse Practitioner Family
DX: Z78.0 Asymptomatic menopausal state (principal); M85.89 Other specified disorders of bone density and structure, multiple sites
CPT/HCPCS: 77080